=== PATIENT | female | born 1995 | race American Indian/Alaskan Native ===

== ENCOUNTER 2021-03-31 07:50 | Emergency (ER) | payer MEDICAID ==
[2021-03-31 07:58] VITALS: BP 116/70
== END 2021-03-31 08:00 | disposition left against medical advice (07) ==
LOC: ED 07:50
DX: K08.89 Other specified disorders of teeth and supporting structures (principal); Z53.21 Procedure and treatment not carried out due to patient leaving prior to being seen by health care provider